=== PATIENT | female | born 1995 | race African-American/Black ===

== ENCOUNTER 2018-11-01 08:57 | Emergency (ER) | payer OTHER, BC ==
[2018-11-01 09:07] VITALS: BP 133/70; PULSE 84; TEMP 98; BMI 22.1
--- NOTE | 2018-11-01 09:12 | PDOC ---
History of Present Illness - General Chief Complaint: Injury Stated Complaint: INJURY,RT HAND Time Seen by Provider: 11/01/18 09:12 History Source: Patient Exam Limitations: No Limitations - History of Present Illness Initial Comments: 11/01/18 09:55 Patient is a 22-year-old female who presents to the emergency department today for a burn to her left forearm. Patient states she was taking hot milk out of the microwave earlier this morning when some spilled onto her forearm. She states that she ran cold water on it and then immediately presented to the emergency department. She did not take any medication for pain. Denies numbness and tingling to the extremity, weakness to the extremity, fevers. Pt is R hand dominant Past History - Travel Traveled outside of the country in the last 30 days: No Close contact w/someone who was outside of country & ill: No - Past Medical History Allergies/Adverse Reactions: Allergies Allergy/AdvReac Type Severity Reaction Status Date / Time No Known Allergies Allergy Verified 11/01/18 09:01 Home Medications: Ambulatory Orders Ibuprofen 600 mg PO Q6H #28 tablet 11/01/18 Silver Sulfadiazine 1% Top Cr [Silvadene] 1 applic TP DAILY #1 jar 11/01/18 COPD: No - Immunization History Immunization Up to Date: Yes - Suicide/Smoking/Psychosocial Hx Smoking History: Never smoked Hx Alcohol Use: No Drug/Substance Use Hx: No Review of Systems - Review of Systems Able to Perform ROS?: Yes Comments:: 11/01/18 09:47 CONSTITUTIONAL: Absent: fever, chills, diaphoresis, generalized weakness, malaise, loss of appetite MUSCULOSKELETAL: Absent: myalgia, arthralgia, joint swelling SKIN: Present: burn to L forearm Absent: rash, itching, pallor HEMATOLOGIC/IMMUNOLOGIC: Absent: easy bleeding, easy bruising, lymphadenopathy, frequent infections NEUROLOGIC: Absent: headache, focal weakness or paresthesias, dizziness, unsteady gait, seizure, mental status changes, bladder or bowel incontinence PSYCHIATRIC: Absent: anxiety, depression, suicidal or homicidal ideation, hallucinations. Is the patient limited Kiswahili proficient: No *Physical Exam - Vital Signs Last Vital Signs Temp Pulse Resp BP Pulse Ox 98.0 F 84 18 133/70 100 11/01/18 09:01 11/01/18 09:01 11/01/18 09:01 11/01/18 09:01 11/01/18 09:01 - Physical Exam Comments: 11/01/18 09:47 GENERAL: Well developed, well nourished. Awake and alert. No acute distress. NECK: Supple. Full ROM. No JVD. Carotid pulses 2+ and symmetric, without bruits. No thyromegaly. No lymphadenopathy. MUSCULOSKELETAL Normal range of motion at all joints. No bony deformities or tenderness. No CVA tenderness. EXTREMITIES: No cyanosis. No clubbing. No edema. No calf tenderness. SKIN: 3cm round area of mixed first degree and second burn with blistering to the distal dorsal forearm. 1cm ovoid to the medial dorsal wrist of 1st degree burning. Wound is non-circumferential. Approximately 2% of surface area. Warm and dry. Normal capillary refill. No rashes. No jaundice. NEUROLOGICAL: Alert, awake, appropriate. Cranial nerves 2-12 intact. No deficits to light touch and temperature in face, upper extremities and lower extremities. No motor deficits in the in face, upper extremities and lower extremities. Normoreflexic in the upper and lower extremities. Normal speech. Toes are down- going bilaterally. Gait is normal without ataxia. PSYCHIATRIC: Cooperative. Good eye contact. Appropriate mood and affect. Moderate Sedation - Procedure Monitoring Vital Signs: Procedure Monitoring Vital Signs Temperature 98.0 F 11/01/18 09:01 Pulse Rate 84 11/01/18 09:01 Respiratory Rate 18 11/01/18 09:01 Blood Pressure 133/70 11/01/18 09:01 O2 Sat by Pulse Oximetry (%) 100 11/01/18 09:01 Medical Decision Making - Medical Decision Making 11/01/18 10:01 Patient is a 22-year-old female who presents emergency department for burn to her left lower forearm. On exam patient with 2% surface area coverage to the distal dorsal forearm approximately 3 cm with mixed first and second-degree oseguera. Wound is not circumferential. Patient is able to fully flex and extend the wrist and fingers. Cool water was applied to the wound to stop the burn process. Silvadene applied. No evidence of infection at this time. Defer antibiotics. We'll discharge home with Silvadene and burn care instructions. I discussed the physical exam findings, ancillary test results and final diagnoses with the patient. I answered all of the patient's questions. The patient was satisfied with the care received and felt comfortable with the discharge plan and treatment plan. The Patient agrees to follow up with the primary care physician/specialist within 24-72 hours. Return precautions were given. *DC/Admit/Observation/Transfer Diagnosis at time of Disposition: Burn of forearm, left Qualifiers: Encounter type: initial encounter Burn degree: partial thickness (2nd degree) Qualified Code(s): T22.212A - Burn of second degree of left forearm, initial encounter - Discharge Dispostion Disposition: HOME Condition at time of disposition: Stable Decision to Admit order: No - Prescriptions Prescriptions: Ibuprofen 600 mg PO Q6H #28 tablet Silver Sulfadiazine 1% Top Cr [Silvadene] 1 applic TP DAILY #1 jar - Referrals Referrals: Esdras Herrera MD [Primary Care Provider] - - Patient Instructions Printed Discharge Instructions: DI for Osegu[place] Additional Instructions: You've burned your forearm today. Please keep the area clean and dry. You may change the dressing tomorrow. Apply Silvadene to the site. Then use a nonstick Telfa dressing and tape to cover the wound. You may take Motrin 600 mg every 6 hours as needed for pain. Do not take more than 3000 mg a day. Keep the area covered at work. Follow-up with your primary care doctor. Return to the emergency department if you develop fevers, worsening redness to the site, signs of infection including pus, or if you have any changes in your symptoms. - Post Discharge Activity Forms/Work/School Notes: Back to Work
[2018-11-01] MEDS ORDERED: IBUPROFEN 600 MG TABLET (FP) PO ONE ×2 (09:21→09:22)
[2018-11-01] MEDS ORDERED: SILVER SULFADIAZINE 1% TOP CREAM 50 GM JAR TP ONE ×2 (09:21→09:22)
== END 2018-11-01 10:20 | disposition home or self-care (01) ==
LOC: JERFT 08:57
PROC: 2W2DX4Z Dressing of Left Lower Arm using Bandage (ICD-10-PCS; principal; 2018-11-01)
DX: T22.212A Burn of second degree of left forearm, initial encounter (principal); X10.0XXA Contact with hot drinks, initial encounter; Y93.89 Activity, other specified; Y92.030 Kitchen in apartment as the place of occurrence of the external cause; Y99.8 Other external cause status
CPT/HCPCS: 99281-25